=== PATIENT | male | born 1950 | race Caucasian/White ===

== ENCOUNTER 2018-03-01 10:45 | Emergency (ER) | payer OTHER ==
[~2018-03-01] VITALS: Ht 165.1 cm; Wt 72.6 kg
[~2018-03-01 10:45] MED LIST: ULTRACET PO
[2018-03-01] MEDS ORDERED: ATORVASTATIN CA40 MG (10:57)
[2018-03-01] MEDS ORDERED: FAMOTIDINE40 MG (10:57)
[2018-03-01] MEDS ORDERED: PLAVIX75 MG (10:57)
[2018-03-01] MEDS ORDERED: CILOSTAZOL50 MG (10:58)
[2018-03-01] MEDS ORDERED: CLONAZEPAM0.5 MG (10:58)
== END 2018-03-01 16:02 | disposition home or self-care (01) ==
LOC: ER 10:45
DX: M54.5 Low back pain (principal)